=== PATIENT | female | born 1990 | race Caucasian/White ===

== ENCOUNTER → 2017-06-17 | Outpatient (CLI) | payer BC | END | disposition home or self-care (01) | LOC: LABWHC1 16:17 | PROVIDERS: ATTEND Obstetrics & Gynecology | DX: Z34.80 Encounter for supervision of other normal pregnancy, unspecified trimester (principal); Z3A.00 Weeks of gestation of pregnancy not specified | CPT/HCPCS: 36415; 84702 ==

== ENCOUNTER → 2023-03-02 | Outpatient (CLI) | payer OTHER ==
--- NOTE | 2023-03-02 09:39 | US ---
EXAMINATION TYPE: US gallbladder DATE OF EXAM: 03/02/2023 COMPARISON: CT 2012 CLINICAL INDICATION: Female, 32 years old with history of K81.0 ACUTE CHOLECYSTITIS; Intermittent RUQ pain and N/V x couple years TECHNIQUE: Multiple sonographic images of the right upper quadrant are obtained. FINDINGS: EXAM MEASUREMENTS: Liver Length: 13.8 cm Gallbladder Wall: 0.2 cm CBD: 0.3 cm Right Kidney: 9.9 x 4.1 x 4.5 cm Multiple grayscale ultrasound images of the right upper quadrant were obtained. Difficult and limited study due to patient body habitus Pancreas: visualized portions wnl, limited by overlying midline bowel gas Liver: wnl Gallbladder: wnl Evidence for sonographic Vargas's sign: no CBD: visualized portions wnl, limited by overlying bowel gas Right Kidney: wnl Visualized portions of the pancreas are unremarkable. Liver is within normal limits without evidence of focal lesion. Gallbladder is unremarkable without evidence of pericholecystic fluid, cholelithiasi s, or wall thickening. Visualized portions of the common bile duct are within normal limits. The righ t kidney is unremarkable without evidence of hydronephrosis, solid mass, or shadowing calculi. IMPRESSION: Limited examination due to patient's body habitus. No ultrasound evidence for an acute process.
== END | disposition home or self-care (01) ==
LOC: RADUSWWP 07:36
PROVIDERS: ATTEND Family Medicine
DX: K81.0 Acute cholecystitis (principal); R11.10 Vomiting, unspecified
CPT/HCPCS: 76705

== ENCOUNTER → 2024-06-26 | Outpatient (CLI) | payer MEDICAID ==
--- NOTE | 2024-06-26 10:47 | NM ---
EXAMINATION TYPE: NM hepatobiliary w CCK DATE OF EXAM: 06/26/2024 COMPARISON: NONE CLINICAL INDICATION: Female, 33 years old with history of R10.0 acute abdominal pain; TECHNIQUE: After the intravenous administration of 4.7 mCi Tc 99m Mebrofenin hepatobiliary scintigrap hy is performed. Immediate images post injection. FINDINGS: There is satisfactory initial accumulation of tracer by the liver. The gallbladder is visualized wit hin 12 minutes. The small bowel activity is noted within 44 minutes. At one hour CCK was administer ed, patient was injected with 1.7 mcg of Kinevac, and gallbladder ejection fraction is calculated at 41%. IMPRESSION: Low-normal gallbladder ejection fraction which could reflect biliary dyskinesia and/or ch ronic cholecystitis. [facility] Haleigh Estrada, , 06/26/2024 10:45 AM
== END | disposition home or self-care (01) ==
LOC: RADNMMAIN 07:03
PROVIDERS: ATTEND Family Medicine
DX: R10.9 Unspecified abdominal pain (principal)
CPT/HCPCS: 78227